=== PATIENT | female | born 1930 | race Two or more races ===

== ENCOUNTER 2017-03-17 01:20 | Emergency (ER) | payer MEDICARE, MEDICAID ==
[~2017-03-17] VITALS: Ht 152.4 cm; Wt 52.2 kg
[2017-03-17] MEDS ORDERED: ENAL10TA PO (01:43)
[2017-03-17] MEDS ORDERED: ALEN70TA45 PO (01:43)
[2017-03-17] MEDS ORDERED: ASPI81TA44 PO (01:43)
[2017-03-17] MEDS ORDERED: CITA20TA11 PO (01:43)
--- NOTE | 2017-03-17 01:45 | NUR ---
Dr. Melendez at bedside for MSE.
[2017-03-17] MEDS ORDERED: ACETAMINOPHEN 325 MG TABLET PO ONE (02:00)
[2017-03-17] MEDS ORDERED: ACETAMINOPHEN 325 MG TABLET ONE ×2 (02:09→02:17)
--- NOTE | 2017-03-17 02:10 | NUR ---
Pt out of ER for CT.
--- NOTE | 2017-03-17 02:24 | NUR ---
Pt back to ER from CT.
--- NOTE | 2017-03-17 03:50 | NUR ---
Per MD, patient stable for discharge. Written and verbal after care instructions given to patient's daughter. Patient's daughter verbalizes understanding of instructions. Daughter brought patient out of ER by wheelchair with all belongings via private vehicle.
[2017-03-17 03:52] VITALS: BP 112/58
== END 2017-03-17 03:53 | disposition home or self-care (01) ==
LOC: ER 01:20
DX: S39.92XA Unspecified injury of lower back, initial encounter (principal); S09.90XA Unspecified injury of head, initial encounter; S20.219A Contusion of unspecified front wall of thorax, initial encounter; S60.229A Contusion of unspecified hand, initial encounter; S60.512A Abrasion of left hand, initial encounter; E04.2 Nontoxic multinodular goiter; E11.9 Type 2 diabetes mellitus without complications; F03.90 Unspecified dementia, unspecified severity, without behavioral disturbance, psychotic disturbance, mood disturbance, and anxiety; Z79.82 Long term (current) use of aspirin; Z88.5 Allergy status to narcotic agent; W18.30XA Fall on same level, unspecified, initial encounter; Y93.01 Activity, walking, marching and hiking; Y92.89 Other specified places as the place of occurrence of the external cause; Y99.8 Other external cause status
CPT/HCPCS: 70450; 71101; 72125; 72192; 73130; A4663